=== PATIENT | male | born 1985 | race African-American/Black ===

== ENCOUNTER 2024-04-24 16:56 | Emergency (ER) | payer SELFPAY ==
[~2024-04-24] VITALS: Ht 177.8 cm; Wt 82.0 kg
[2024-04-24 16:58] VITALS: TEMP 98.1; O2SAT 98
[2024-04-24 23:15] VITALS: BP 131/92; PULSE 68; RESP 16
== END 2024-04-24 23:31 | disposition home or self-care (01) ==
LOC: ER 16:56
DX: R05.9 Cough, unspecified (principal)
CPT/HCPCS: 71045; 99285